=== PATIENT | male | born 1985 | race Caucasian/White ===

== ENCOUNTER 2017-09-03 08:33 | Emergency (ER) | payer SELFPAY ==
[~2017-09-03] VITALS: Ht 180.3 cm; Wt 80.0 kg
[~2017-09-03 08:33] MED LIST: BUSP10 PO; HYDR10SO PO
[2017-09-03 08:42] VITALS: BP 160/65; PULSE 76; RESP 16; TEMP 97.8; O2SAT 96
--- NOTE | 2017-09-03 08:50 | PD ---
HPI Chief Complaint: Abdominal Pain Time Seen by Provider: 08:49 Travel History International Travel<30 days: No Contact w/Intl Traveler<30days: No Traveled to known affect area: No History of Present Illness HPI 31-year-old male came to the emergency room with history of abdominal pain and vomiting for past 1 year. Patient says this significantly worsened in the past 2 months. He has been vomiting every day in past 2 months. Patient has lost 60 pounds over this period. He does not have insurance or a primary care physician. He has not had any evaluations done for this. Pain is worse just before he throws up and otherwise just there for the rest of the day. Patient is vomiting mostly whitish phlegm-like material. He has history of anxiety and schizophrenia. But he is not on any medications for this. His fiance brought him here. She's been concerned about his health. Patient is a heavy smoker and heavy drinker. He drinks every day. He is shaking a little bit and upon asking he says that this is because of anxiety and not withdrawal. Vital signs are stable. [facility] Past Medical History Narrative Medical List of his past medical, surgical, social and family history as reviewed from the nursing note. Hx Anticoagulant Therapy: No Arthritis: No Asthma: No Autoimmune Disease: No Blood Disorders: No Anxiety: Yes Depression: No Heart Rhythm Problems: No Cancer: No Cardiovascular Problems: No High Cholesterol: No Chemotherapy: No Chest Pain: No Congestive Heart Failure: Yes COPD: No Cerebrovascular Accident: No Diabetes: No Diminished Hearing: No Endocrine: No Gastrointestinal Disorders: No GERD: No Genitourinary: No Headaches: No Hiatal Hernia: No Hypertension: Yes (not on medications) Immune Disorder: No Implanted Vascular Access Dvce: No Kidney Stones: No Musculoskeletal: Yes (BACK PAIN) Neurologic: No Psychiatric: Yes Reproductive: Yes Respiratory: Yes Integumentary: Yes (CYST-MULTIPLE AREAS ON BODY-CHRONIC) Immunizations Current: Yes Migraines: No Radiation Therapy: No Renal Failure: No Schizophrenia: Yes Seizures: No Sickle Cell Disease: No Sleep Apnea: No Thyroid Disease: No Ulcer: No Past Surgical History Abdominal Surgery: No AICD: No Arteriovenous Shunt: No Cardiac Surgery: No Ear Surgery: No Endocrine Surgery: No Eye Surgery: No Genitourinary Surgery: No Gynecologic Surgery: Yes (surgery on the left testicle - 08/2014) Hysterectomy: No Insulin Pump: No Joint Replacement: No Neurologic Surgery: No Oral Surgery: No Pacemaker: No Thoracic Surgery: No Tonsillectomy: Yes Other Surgery: Yes (TONSILECTOMY, CYSTS) Social History Alcohol Use: Yes (DAILY) Tobacco Use: Yes (2 PPD) Substance Use: No Allergies-Medications (Allergen,Severity, Reaction): Coded Allergies: Sulfa (Sulfonamide Antibiotics) (Unverified Allergy, Unknown, RASH, ) Comments List of his allergies reviewed from the nursing note. Reported Meds & Prescriptions Reported Meds & Active Scripts Active Zofran Odt (Ondansetron Odt) 4 Mg Tab 4 Mg SL Q6HR PRN Omeprazole 40 Mg Cap 40 Mg PO DAILY Reported Gabapentin 300 Mg Cap 300 Mg PO TID Hydrocodone-Acetaminophen 10-325 mg Tab 1 Tab PO Q6H PRN Narrative Medication List of his home medications reviewed from the nursing note. Review of Systems Except as stated in HPI: all other systems reviewed are Neg Gastrointestinal: Positive: Nausea, Vomiting, Abdominal Pain Physical Exam Narrative GENERAL: Awake, alert, very anxious, mild distress SKIN: Focused skin assessment warm/dry. HEAD: Atraumatic. Normocephalic. EYES: Pupils equal and round. No scleral icterus. No injection or drainage. ENT: No nasal bleeding or discharge. Mucous membranes pink and moist. NECK: Trachea midline. No JVD. CARDIOVASCULAR: Regular rate and rhythm. No murmur appreciated. RESPIRATORY: No accessory muscle use. Clear to auscultation. Breath sounds equal bilaterally. GASTROINTESTINAL: Abdomen soft, non-tender, nondistended. Hepatic and splenic margins not palpable. MUSCULOSKELETAL: No obvious deformities. No clubbing. No cyanosis. No edema. NEUROLOGICAL: Awake and alert. No obvious cranial nerve deficits. Motor grossly within normal limits. Normal speech. PSYCHIATRIC: Appropriate mood and affect; insight and judgment normal. Data Data Last Documented VS Vital Signs Date Time Temp Pulse Resp B/P (MAP) Pulse Ox O2 Delivery O2 Flow Rate FiO2 09/03/17 11:15 88 16 146/88 (107) 98 09/03/17 09:23 Room Air 09/03/17 08:42 97.8 Orders Orders Complete Blood Count With Diff (09/03/17 08:59) Comprehensive Metabolic Panel (09/03/17 08:59) Lipase (09/03/17 08:59) Urinalysis - C+S If Indicated (09/03/17 08:59) Ct Abd/Pel W Iv Contrast(Rout) (09/03/17 08:59) Iv Access Insert/Monitor (09/03/17 08:59) Ecg Monitoring (09/03/17 08:59) Oximetry (09/03/17 08:59) Sodium Chloride 0.9% Flush (Ns Flush) (09/03/17 09:00) Pantoprazole (Protonix) (09/03/17 09:00) Alcohol (Ethanol) (09/03/17 08:59) Oral Contrast - Adult (09/03/17 09:02) Diatrizoate Liq ( Gastroview Liq) (09/03/17 09:10) Urine Culture (09/03/17 09:17) Iohexol 350 Inj (Omnipaque 350 Inj) (09/03/17 10:33) Ed Discharge Order (09/03/17 10:57) Labs Laboratory Tests Test 09/03/17 09:17 White Blood Count 6.4 TH/MM3 Red Blood Count 4.43 MIL/MM3 Hemoglobin 14.0 GM/DL Hematocrit 43.3 % Mean Corpuscular Volume 97.7 FL Mean Corpuscular Hemoglobin 31.5 PG Mean Corpuscular Hemoglobin Concent 32.3 % Red Cell Distribution Width 12.9 % Platelet Count 300 TH/MM3 Mean Platelet Volume 7.9 FL Neutrophils (%) (Auto) 72.4 % Lymphocytes (%) (Auto) 17.0 % Monocytes (%) (Auto) 7.6 % Eosinophils (%) (Auto) 2.4 % Basophils (%) (Auto) 0.6 % Neutrophils # (Auto) 4.6 TH/MM3 Lymphocytes # (Auto) 1.1 TH/MM3 Monocytes # (Auto) 0.5 TH/MM3 Eosinophils # (Auto) 0.2 TH/MM3 Basophils # (Auto) 0.0 TH/MM3 CBC Comment DIFF FINAL Differential Comment Urine Collection Type CLEAN CATCH Urine Color YELLOW Urine Turbidity CLEAR Urine pH 5.5 Urine Specific [place] 1.028 Urine Protein TRACE mg/dL Urine Glucose (UA) NEG mg/dL Urine Ketones NEG mg/dL Urine Occult Blood NEG Urine Nitrite NEG Urine Bilirubin NEG Urine Leukocyte Esterase NEG Urine RBC 0-3 /hpf Urine WBC 9-14 /hpf Urine Squamous Epithelial Cells 0-5 /hpf Microscopic Urinalysis Comment CULTURE INDICATED Urine Collection Time 09:17 Blood Urea Nitrogen 8 MG/DL Creatinine 0.68 MG/DL Random Glucose 118 MG/DL Total Protein 7.9 GM/DL Albumin 3.7 GM/DL Calcium Level 9.4 MG/DL Alkaline Phosphatase 97 U/L Aspartate Amino Transf (AST/SGOT) 200 U/L Alanine Aminotransferase (ALT/SGPT) 129 U/L Total Bilirubin 0.5 MG/DL Sodium Level 140 MEQ/L Potassium Level 4.1 MEQ/L Chloride Level 107 MEQ/L Carbon Dioxide Level 24.2 MEQ/L Anion Gap 9 MEQ/L Estimat Glomerular Filtration Rate 134 ML/MIN Lipase 137 U/L Ethyl Alcohol Level 4 MG/DL MDM Medical Decision Making Medical Screen Exam Complete: Yes Emergency Medical Condition: Yes Medical Record Reviewed: Yes Differential Diagnosis Acute pancreatitis, acute gastritis, acute cholecystitis, biliary colic Narrative Course 10:27 AM blood test results are back and patient has moderately elevated LFTs. Rest of the blood test results are within acceptable limits. Currently waiting for CAT scan to be done and resulted. 10:[address] scan result is back and shows prominent hepatic steatosis but otherwise negative. All these findings are suggestive of his alcoholic liver disease. Patient will be discharged home with instructions to stop drinking. Procedures EKG Prior to Arrival: No Diagnosis Primary Impression: Alcoholic liver disease Additional Impressions: Chronic alcoholism Alcoholic gastritis Qualified Codes: K29.20 - Alcoholic gastritis without bleeding Referrals: [facility] Additional Instructions: Please try to follow up with the clinical diagnosis at this has been given to you. He needs to stop drinking alcohol in order to feel better. The alcohol is affecting his liver as well as stomach. Take the medication as per the prescription in addition. Med/Other Pt SpecificInfo: Prescription(s) given Scripts Ondansetron Odt (Zofran Odt) 4 Mg Tab 4 MG SL Q6HR Y for Nausea/Vomiting, #10 TAB 0 Refills Prov: Mode Love MD 09/03/17 Omeprazole (Omeprazole) 40 Mg Cap 40 MG PO DAILY, #30 CAP 0 Refills Prov: Mode Love MD 09/03/17 Disposition: 01 DISCHARGE HOME Condition: Stable Mode Love MD Sep 03, 2017 08:50
[2017-09-03] MEDS ORDERED: PANTOPRAZOLE SOD 40 MG DELAYED RELEASE TAB PO ONE (09:00)
[2017-09-03] MEDS ORDERED: SODIUM CHLORIDE 0.9% FLUSH 10 ML FLUSH IV FLUSH PRN (09:00)
[2017-09-03] MEDS ORDERED: GABA300C5 PO (09:07)
[2017-09-03] MEDS ORDERED: HYDR-3583 PO (09:07)
[2017-09-03] MEDS ORDERED: DIATRIZOATE MEGLUM/DIATRIZOATE SOD 9 ML CUP ONE (09:10)
[2017-09-03 09:23] VITALS: O2SAT 98
[2017-09-03 09:26] LABS: BLOOD, URINE NEG (NEG); GLUCOSE,URINE NEG (NEG); KETONE, URINE NEG (NEG); NITRITE,URINE NEG (NEG); PH, URINE 5.5 (5.0-8.5)
[2017-09-03 09:27] LABS: AUTOMATED NEUTROPHIL # 4.6 TH/MM3 (1.8-7.7); BASOPHIL % 0.6 % (0.0-2.0); EOSINOPHIL # 0.2 TH/MM3 (0-0.4); EOSINOPHIL % 2.4 % (0.0-4.0); HEMATOCRIT 43.3 % (39.0-51.0); HEMO FLAGS DIFF FINAL; LYMPHOCYTE # 1.1 TH/MM3 (1.0-4.8); MEAN CELL VOLUME 97.7 FL (80.0-100.0); MEAN CORPUSCULAR HEMOGLOBIN 31.5 PG (27.0-34.0); MEAN CORPUSCULAR HGB CONC 32.3 % (32.0-36.0); MONO % 7.6 % (0.0-8.0); NEUT % 72.4 % (16.0-70.0); PLATELET COUNT 300 TH/MM3 (150-450); RED BLOOD COUNT 4.43 MIL/MM3 (4.50-5.90); RED CELL DISTRIBUTION WIDTH 12.9 % (11.6-17.2); WHITE BLOOD COUNT 6.4 TH/MM3 (4.0-11.0)
[2017-09-03 09:32] LABS: COMMENT (UR) CULTURE INDICATED; CULTURE IF INDICATED CULTURE INDICATED; METHOD OF COLLECTION CLEAN CATCH; RBC, URINE 0-3 /hpf (0-3); SQUAMOUS EPITHELIAL CELL URINE 0-5 /hpf (0-5); URINE COLOR YELLOW (YELLW/STRAW)
[2017-09-03 09:58] LABS: BICARBONATE 24.2 MEQ/L (21.0-32.0)
[2017-09-03 09:59] LABS: BLOOD UREA NITROGEN 8 MG/DL (7-18)
[2017-09-03 10:00] LABS: ALT (GPT) 129 U/L (12-78); AST (GOT) 200 U/L (15-37); GLOMERULAR FILTRATION RATE 134 ML/MIN (>89)
[2017-09-03 10:02] LABS: TOTAL BILIRUBIN ADULT 0.5 MG/DL (0.2-1.0)
[2017-09-03 10:03] LABS: ALKALINE PHOSPHATASE 97 U/L (45-117)
[2017-09-03 10:06] LABS: ANION GAP 9 MEQ/L (5-15); CHLORIDE 107 MEQ/L (98-107); POTASSIUM 4.1 MEQ/L (3.5-5.1); SODIUM (NA) 140 MEQ/L (136-145)
[2017-09-03 10:11] LABS: ALCOHOL 4 MG/DL (0-5)
[2017-09-03] MEDS ORDERED: IOHEXOL 350 MG/ML 10 ML VIAL (for RAD DIAG) IVCONTRAST ONE (10:33)
--- NOTE | 2017-09-03 10:45 | RADRPT ---
EXAM DATE/TIME: 09/03/2017 10:23 [facility] COMPARISON: CT ABDOMEN & PELVIS W CONTRAST, October 15, 2014, 20:42. INDICATIONS : Diffuse abdominal pain and vomiting x 1 month. IV CONTRAST: 85 cc Omnipaque 350 (iohexol) IV ORAL CONTRAST: Prescribed oral contrast ingested. RADIATION DOSE: 9.02 CTDIvol (mGy) MEDICAL HISTORY : Hypertension. Congestive heart failure. SURGICAL HISTORY : None. ENCOUNTER: Initial ACUITY: 1 month PAIN SCALE: 4/10 LOCATION: Abdomen. TECHNIQUE: Volumetric scanning of the abdomen and pelvis was performed. Using automated exposure control and ad justment of the mA and/or kV according to patient size, radiation dose was kept as low as reasonably achievable to obtain optimal diagnostic quality images. DICOM format image data is available electro nically for review and comparison. FINDINGS: LOWER LUNGS: The visualized lower lungs are clear. LIVER: Very prominent interval diffuse decreased hepatic density consistent with hepatic steatosis. No signi ficant volume loss, focal mass or intrahepatic ductal dilatation. Gallbladder is unremarkable by CT. SPLEEN: Normal size without lesion. PANCREAS: Within normal limits. KIDNEYS: Normal in size and shape. There is no mass, stone or hydronephrosis. ADRENAL GLANDS: Within normal limits. VASCULAR: There is no aortic aneurysm. BOWEL/MESENTERY: The stomach, small bowel, and colon demonstrate no acute abnormality. Appendix is visualized and nor mal in appearance. There is no free intraperitoneal air or fluid. ABDOMINAL WALL: Within normal limits. RETROPERITONEUM: There is no lymphadenopathy. BLADDER: No wall thickening or mass. REPRODUCTIVE: Within normal limits. INGUINAL: There is no lymphadenopathy or hernia. MUSCULOSKELETAL: Within normal limits for patient age. CONCLUSION: 1. No acute abnormality in the abdomen or pelvis. 2. Normal appendix. 3. Very prominent interval development of hepatic steatosis. Donny Payne MD on September 03, 2017 at 10:36 Board Certified Radiologist. This report was verified electronically.
[2017-09-03] MEDS ORDERED: ZOFR4TAB3 SL (10:57)
[2017-09-03] MEDS ORDERED: OMEP40CA2 PO (10:57)
[2017-09-03 11:15] VITALS: BP 146/88
== END 2017-09-03 11:20 | disposition home or self-care (01) ==
LOC: PHED 08:33
DX: K70.9 Alcoholic liver disease, unspecified (principal); K29.20 Alcoholic gastritis without bleeding; F10.20 Alcohol dependence, uncomplicated; F17.210 Nicotine dependence, cigarettes, uncomplicated; Y90.0 Blood alcohol level of less than 20 mg/100 ml
CPT/HCPCS: 74177; 80053; 80307; 81001; 83690; 85025; 87086; 99285; Q9963; Q9967